=== PATIENT | female | born 2000 | race Asian ===

== ENCOUNTER 2024-04-04 19:53 | Emergency (ER) | payer MEDICAID ==
[~2024-04-04] VITALS: Ht 165.1 cm; Wt 49.4 kg
[2024-04-04 20:27] LABS: BASOPHILS # (AUTO) 0.1 K/UL (0.0-0.2); BASOPHILS % (AUTO) 0.6 % (0.0-2.0); EOSINOPHILS # (AUTO) 0.1 K/uL (0.0-0.7); EOSINOPHILS % (AUTO) 0.5 % (0.0-7.0); HEMATOCRIT 37.8 % (31.2-41.9); HEMOGLOBIN 12.4 g/dL (10.9-14.3); LYMPHOCYTES # (AUTO) 2.3 K/uL (0.8-4.8); LYMPHOCYTES % (AUTO) 14.3 % (20.5-51.5); MEAN CORPUSCULAR HEMOGLOBIN 28.1 uug (24.7-32.8); MEAN CORPUSCULAR HGB CONC 33 g/dL (32.3-35.6); MONOCYTES # (AUTO) 0.7 K/uL (0.1-1.30); MONOCYTES % (AUTO) 4.5 % (0.0-11.0); NEUTROPHILS # (AUTO) 13.1 K/uL (1.8-8.9); NEUTROPHILS % (AUTO) 80.1 % (38.5-71.5); PLATELET COUNT (AUTO) 448 K/uL (179-408); RED BLOOD CELL COUNT(AUTO) 4.39 MIL/uL (3.63-4.92); RED CELL DISTRIBUTION WIDTH 14.4 % (12.3-17.7); WHITE BLOOD COUNT (AUTO) 16.3 K/uL (3.8-11.8)
[2024-04-04 20:31] LABS: *BILIRUBIN,URIN NEGATIVE (NEGATIVE); *BLOOD, URINE 3+ (NEGATIVE); *CLARITY,URINE CLEAR (CLEAR); *COLOR,URINE YELLOW (YELLOW); *KETONES,URINE 1+ (NEGATIVE); *PROTEIN,URINE NEGATIVE (NEGATIVE); *UROBILINOGEN,URINE 0.2 E.U./dl (NORMAL); LEUKOCYTE ESTERASE ,URINE 2+ (NEGATIVE); NITRITE, URINE NEGATIVE (NEGATIVE); PH,URINE 6.5 (5.0-8.0); UGLUCOSE NEGATIVE (NEGATIVE)
[2024-04-04] MEDS ORDERED: ONDANSETRON 4 MG/2 ML VIAL ONE (20:31)
[2024-04-04] MEDS ORDERED: HYDROMORPHONE 1 MG/1 ML DISP.SYRIN ONE (20:32)
[2024-04-04 20:33] LABS: DIFFERENTIAL COMMENT 1
[2024-04-04 20:35] LABS: CALCIUM 9.6 mg/dL (8.5-10.1); CREATININE 0.6 mg/dL (0.6-1.3); POTASSIUM 3.7 mmol/L (3.5-5.1)
[2024-04-04 20:36] LABS: *URINE HCG, QUAL NEGATIVE (NEGATIVE)
[2024-04-04] MEDS: HYDROMORPHONE 1 MG/1 ML DISP.SYRIN IV ONE (20:36)
[2024-04-04] MEDS: ONDANSETRON 4 MG/2 ML VIAL IV ONE (20:36)
[2024-04-04 20:41] LABS: ALBUMIN 4.8 g/dL (3.4-5.0); BILIRUBIN,DIRECT 0.1 mg/dL (0.0-0.2); BILIRUBIN,TOTAL 1.1 mg/dL (0.2-1.0); TOTAL PROTEIN, SERUM 9.1 g/dL (6.4-8.2)
[2024-04-04] MEDS: IV NORMAL SALINE 1000 ML BAG IV ONE (21:08)
[2024-04-04 21:28] LABS: *BILIRUBIN,URIN NEGATIVE (NEGATIVE); *BLOOD, URINE 3+ (NEGATIVE); *CLARITY,URINE CLOUDY (CLEAR); *COLOR,URINE YELLOW (YELLOW); *KETONES,URINE 2+ (NEGATIVE); *PROTEIN,URINE 2+ (NEGATIVE); *UROBILINOGEN,URINE 0.2 E.U./dl (NORMAL); LEUKOCYTE ESTERASE ,URINE 1+ (NEGATIVE); NITRITE, URINE NEGATIVE (NEGATIVE); UGLUCOSE NEGATIVE (NEGATIVE)
[2024-04-04] MEDS ORDERED: DOXYCYCLINE HYCLATE 100 MG TABLET ONE (21:29)
[2024-04-04] MEDS ORDERED: CEFTRIAXONE /D5W 50ML IVPB **ER PYXIS IV ONE (21:29)
[2024-04-04] MEDS: CEFTRIAXONE 1 G in IV DEXTROSE 5% 50 ML IV ONE (21:30)
[2024-04-04] MEDS: DOXYCYCLINE HYCLATE 100 MG TABLET PO ONE (21:30)
[2024-04-04] MEDS ORDERED: DOXY100C5 PO (22:15)
[2024-04-04] MEDS ORDERED: PHEN-705 PO (22:15)
[2024-04-04] MEDS ORDERED: NITR-84 PO (22:15)
[2024-04-04 23:31] VITALS: BP 115/78; O2SAT 99
[2024-04-07 08:06] LABS: *CHLAMYDIA NAA Negative (Negative); *GC NAA Negative (Negative)
[2024-04-07 09:08] LABS: *TRIC.VAG. NAA Negative (Negative)
== END 2024-04-04 23:04 | disposition home or self-care (01) ==
LOC: ER 20:14
DX: R30.0 Dysuria (principal); N93.9 Abnormal uterine and vaginal bleeding, unspecified; Z79.899 Other long term (current) drug therapy
CPT/HCPCS: 99285; 96365; 76856; 96375; 80076; 80048; 81001; 84703; 85025; 85730; 87210; 84702; 36415; 87086; 87491; J0696; J2405; J1170; J7040; A4606; A4663